=== PATIENT | male | born 2000 | race African-American/Black ===

== ENCOUNTER 2023-09-30 23:20 | Emergency (ER) | payer MEDICARE, MEDICAID, SELFPAY ==
[2023-09-30 23:46] LABS: Appearance Urine Clear (Clear); Bilirubin Urine Negative (Negative); Blood Urine Negative (Negative); Color Urine Yellow (Yellow); Glucose Urine Negative (Negative); Ketones Urine Negative (Negative); Leukocyte Esterase Urine Negative (Negative); Nitrite Urine Negative (Negative); Protein Urine Negative (Negative); Specific Gravity Urine >= 1.030 (1.000-1.030); Urobilinogen Urine 0.2 (0.2-1.0)
[2023-09-30 23:59] LABS: RBC Urine 0-2 (0-2); Squamous Epithelial Cell Urine Few (None-Few); WBC Urine 0-2 (0-5)
[2023-10-01 00:06] VITALS: BP 120/72; PULSE 70; RESP 16; TEMP 36.7; O2SAT 95; BMI 30.1
--- NOTE | 2023-10-01 00:18 | ED.GENADULT ---
HPI - General Adult General Chief complaint: Urogenital Problems, Male Stated complaint: pelvic pain, right side pain Time Seen by Provider: 10/01/23 00:17 History of Present Illness HPI narrative: 2 week history of R pelvis into R flank pain, intermittent in nature but pain increasing last 2 days to point of limiting ability to get up out of bed. Endorses no fevers just maybe intermittent cough along w/ burning and urgency w/ urination. Denies any nausea, able take in po fine . 23-year-old man presenting to the emergency department with concern of intermittent right flank. Dysuria and flank pain can occur independently. Has not noted any urethral discharge. No hematuria. Right flank pain or abdominal area pain is worse with movement rotation in particular. Has been somewhat constipated lately. When I ask, he endorses being homeless; walking a lot. Related Data Previous Rx's ?Medication ?Instructions ?Recorded magnesium citrate 300 ml PO DAILY PRN constipation 10/01/23 #296 mL polyethylene glycol 3350 17 17 g PO .daily-tid #238 grams 10/01/23 gram/dose oral powder (Miralax) Review of Systems Status of ROS: Reports: 6 or more systems reviewed and unremarkable except as noted in History and below Exam Narrative: Exam Narrative: Pleasant. NAD. Breathing easily. Extremities are well perfused. Without edema. The extremities without difficulty. Abdomen is notably flat. Present bowel sounds. No peritoneal signs. Sore to palpation in the right abdomen. Heart in regular rate and rhythm without murmur rub or gallop. Lungs are clear. Skin is warm and dry without area rash. Const: Vital Signs, click to edit/add: Vital Signs - 24 hr 10/01/23 00:06 Temperature 98.0 F Pulse Rate [Pulse Oximeter] 70 Respiratory Rate 16 Blood Pressure [Ri ght Upper Arm] 120/72 Pulse Oximetry 95 Oxygen Delivery Me thod Room Air Documenting provider has reviewed patient's vital signs: yes Course Vital Signs Vital signs: Initial Vital Signs Temperature 98.0 F 10/01/23 00:06 Temperature Source Temporal Artery Scan 10/01/23 00:06 Pulse Rate 70 10/01/23 00:06 Respiratory Rate 16 10/01/23 00:06 Blood Pressure 120/72 10/01/23 00:06 Blood Pressure Mean 88 10/01/23 00:06 Blood Pressure Position Sitting 10/01/23 00:06 Pulse Oximetry 95 10/01/23 00:06 Oxygen Delivery Method Room Air 10/01/23 00:06 Vital Signs Temperature 98.0 F 10/01/23 00:06 Pulse Rate 70 10/01/23 00:06 Respiratory Rate 16 10/01/23 00:06 Blood Pressure 120/72 10/01/23 00:06 Pulse Oximetry 95 10/01/23 00:06 Oxygen Delivery Method Room Air 10/01/23 00:06 Temperature 98.0 F 10/01/23 00:06 Pulse Rate 70 10/01/23 00:06 Respiratory Rate 16 10/01/23 00:06 Blood Pressure 120/72 10/01/23 00:06 Pulse Oximetry 95 10/01/23 00:06 Oxygen Delivery Method Room Air 10/01/23 00:06 Medications Administered Medications: Discontinued Medications Generic Name Dose Route Start Last Admin Trade Name Freq PRN Reason Stop Dose Admin Sodium Chloride 1,000 mls @ 1,000 mls/hr 10/01/23 00:38 10/01/23 02:27 0.9 % Sodium Chloride 1000 Ml IV 10/01/23 01:37 Infused .Q1H ONE Infusion Medical Decision Making MDM Narrative Medical decision making narrative: Abdominal pain is a little nonspecific. Would check for an for inflammatory markers generally. Could be appendicitis or gallbladder disease. Mesenteric adenopathy, intestinal colic related to constipation, ureteral stone and colic. Think he would benefit from some IV hydration at a minimum given recent turn of life and homelessness at the moment. Maybe unrelated matters with concurrent urethritis or UTI. Check gonorrhea and chlamydia as well. IV normal saline. Labs are normal. Other than urine is somewhat concentrated. Still with unclear etiology to this pain though I suspect constipation is more likely playing a role. He would appreciate more sure that diagnosis. I think in light of his current transients, this probably is a good idea as follow-up will be challenging. I did review CT imaging. That does appear to be a good deal stool throughout the abdomen. Radiology over-read as below Right lower quadrant abdominal pain for 2 weeks Technique: CT through the abdomen and pelvis following 103 mL Isovue 370 IV contrast Comparison: None Findings: Lower chest: No acute abnormality appreciated. Hepatobiliary: No significant parenchymal abnormality is appreciated. Focal hypoenhancement involving segment 4 likely due to focal steatosis or perfusion all variation. Spleen: Unremarkable. Pancreas: No acute abnormality appreciated. Adrenal glands: No acute abnormality appreciated. Kidneys: No significant parenchymal abnormality appreciated. No visualized calculi. No hydronephrosis. Bowel: No obstruction. No focal perienteric or pericolonic stranding is appreciated. The appendix is not confidently visualized. No dilated inflamed structure is seen to suggest appendicitis. Vascular: No acute abnormality appreciated. Lymph nodes: Shotty mesenteric nodes. Peritoneum: No free air. No free fluid. : No acute abnormality appreciated. Soft tissues: No acute abnormality appreciated. Bones: No acute fracture. No lytic or blastic lesion. Impression: Shotty mesenteric nodes of uncertain clinical significance. The appendix is not confidently visualized, but there is no dilated structure or focal inflammatory changes seen to suggest acute appendicitis. No other acute abnormality is appreciated. If symptoms persist or worsen, repeat examination would be recommended for further evaluation. Overall well during time in the emergency department. No further events. See patient discharge plan for further discuss Lab Data Lab results reviewed: Yes I reviewed the patient's lab results Labs: Lab Results 09/30/23 10/01/23 10/01/23 Range/Units 11:30 00:38 01:05 WBC 8.72 (4.50-11.00) K/uL RBC 4.96 (4.30-5.90) m/uL Hgb 15.2 (13.5-17.5) gm/dL Hct 44.9 (37.0-53.0) % MCV 91 (80-100) fL MCH 31 (26-34) pg MCHC 34 (32-36) gm/dL RDW Coeff of Adelfo 11.9 (11.5-15.5) % Plt Count 311 (140-440) K/uL Neut % (Auto) 64.9 (42.0-72.0) % Lymph % (Auto) 23.3 (20-44) % [place] % (Auto) 9.2 (0.0-11.0) % Eos % (Auto) 1.8 (0.0-7.0) % Baso % (Auto) 0.6 (0.0-3.0) % Neut # (Auto) 5.66 (1.7-7.0) K/uL Lymph # (Auto) 2.03 (0.90-2.90) K/uL [place] # (Auto) 0.80 (0.00-0.90) K/UL Eos # (Auto) 0.16 (0.00-0.50) K/uL Baso # (Auto) 0.05 (0.00-0.30) K/uL Abs Immat Gran (auto) 0.02 (0.00-0.30) K/uL Imm/Tot Granulo (auto) 0.2 % Sodium 138 (135-149) mmol/L Potassium 4.4 (3.6-5.1) mmol/L Chloride 105 (96-114) mmol/L Carbon Dioxide 28 (20-32) mmol/L Anion Gap 5 L (7-15) mEq/L BUN 16 (5-24) mg/dL Creatinine 1.0 (0.5-1.5) mg/dL Estimated Creat Clear 116.60 Estimated GFR 107 ml/min Glucose 93 (60-115) mg/dL Calcium 9.2 (8.4-10.6) mg/dL Total Bilirubin 0.6 (0.1-1.5) mg/dL Direct Bilirubin (0.0-0.5) mg/dL AST (12-35) U/L ALT (4-50) U/L Alkaline Phosphatase (40-150) U/L C-Reactive Protein (0.5-1.0) mg/dL Total Protein (6.0-8.3) g/dL Albumin (3.3-5.0) g/dL Urine Color Yellow (Yellow) Urine Appearance Clear (Clear) Urine pH 6.0 (5.0-8.5) Ur Specific [place] >= 1.030 (1.000-1.030) Urine Protein Negative (Negative) Urine Glucose (UA) Negative (Negative) Urine Ketones Negative (Negative) Urine Blood Negative (Negative) Urine Nitrite Negative (Negative) Urine Bilirubin Negative (Negative) Urine Urobilinogen 0.2 (0.2-1.0) Ur Leukocyte Esterase Negative (Negative) Urine RBC 0-2 (0-2) Urine WBC 0-2 (0-5) Ur Squamous Epith Cells Few (None-Few) Urine Bacteria None (None) C.trachomatis Ampl DNA NOT DETECTED (No Detected) N.gonorrhoeae Ampl DNA NOT DETECTED (No Detected) 10/01/23 10/01/23 10/01/23 Range/Units 01:05 01:05 01:05 WBC (4.50-11.00) K/uL RBC (4.30-5.90) m/uL Hgb (13.5-17.5) gm/dL Hct (37.0-53.0) % MCV (80-100) fL MCH (26-34) pg MCHC (32-36) gm/dL RDW Coeff of Adelfo (11.5-15.5) % Plt Count (140-440) K/uL Neut % (Auto) (42.0-72.0) % Lymph % (Auto) (20-44) % [place] % (Auto) (0.0-11.0) % Eos % (Auto) (0.0-7.0) % Baso % (Auto) (0.0-3.0) % Neut # (Auto) (1.7-7.0) K/uL Lymph # (Auto) (0.90-2.90) K/uL [place] # (Auto) (0.00-0.90) K/UL Eos # (Auto) (0.00-0.50) K/uL Baso # (Auto) (0.00-0.30) K/uL Abs Immat Gran (auto) (0.00-0.30) K/uL Imm/Tot Granulo (auto) % Sodium (135-149) mmol/L Potassium (3.6-5.1) mmol/L Chloride (96-114) mmol/L Carbon Dioxide (20-32) mmol/L Anion Gap (7-15) mEq/L BUN (5-24) mg/dL Creatinine (0.5-1.5) mg/dL Estimated Creat Clear Estimated GFR ml/min Glucose (60-115) mg/dL Calcium (8.4-10.6) mg/dL Total Bilirubin Cancelled (0.1-1.5) mg/dL Direct Bilirubin 0.4 Cancelled (0.0-0.5) mg/dL AST 26 Cancelled (12-35) U/L ALT 27 (4-50) U/L Alkaline Phosphatase (40-150) U/L C-Reactive Protein (0.5-1.0) mg/dL Total Protein (6.0-8.3) g/dL Albumin (3.3-5.0) g/dL Urine Color (Yellow) Urine Appearance (Clear) Urine pH (5.0-8.5) Ur Specific [place] (1.000-1.030) Urine Protein (Negative) Urine Glucose (UA) (Negative) Urine Ketones (Negative) Urine Blood (Negative) Urine Nitrite (Negative) Urine Bilirubin (Negative) Urine Urobilinogen (0.2-1.0) Ur Leukocyte Esterase (Negative) Urine RBC (0-2) Urine WBC (0-5) Ur Squamous Epith Cells (None-Few) Urine Bacteria (None) C.trachomatis Ampl DNA (No Detected) N.gonorrhoeae Ampl DNA (No Detected) 10/01/23 10/01/23 10/01/23 Range/Units 01:05 01:05 01:05 WBC (4.50-11.00) K/uL RBC (4.30-5.90) m/uL Hgb (13.5-17.5) gm/dL Hct (37.0-53.0) % MCV (80-100) fL MCH (26-34) pg MCHC (32-36) gm/dL RDW Coeff of Adelfo (11.5-15.5) % Plt Count (140-440) K/uL Neut % (Auto) (42.0-72.0) % Lymph % (Auto) (20-44) % [place] % (Auto) (0.0-11.0) % Eos % (Auto) (0.0-7.0) % Baso % (Auto) (0.0-3.0) % Neut # (Auto) (1.7-7.0) K/uL Lymph # (Auto) (0.90-2.90) K/uL [place] # (Auto) (0.00-0.90) K/UL Eos # (Auto) (0.00-0.50) K/uL Baso # (Auto) (0.00-0.30) K/uL Abs Immat Gran (auto) (0.00-0.30) K/uL Imm/Tot Granulo (auto) % Sodium (135-149) mmol/L Potassium (3.6-5.1) mmol/L Chloride (96-114) mmol/L Carbon Dioxide (20-32) mmol/L Anion Gap (7-15) mEq/L BUN (5-24) mg/dL Creatinine (0.5-1.5) mg/dL Estimated Creat Clear Estimated GFR ml/min Glucose (60-115) mg/dL Calcium (8.4-10.6) mg/dL Total Bilirubin (0.1-1.5) mg/dL Direct Bilirubin (0.0-0.5) mg/dL AST (12-35) U/L ALT Cancelled (4-50) U/L Alkaline Phosphatase 143 Cancelled (40-150) U/L C-Reactive Protein 1.0 (0.5-1.0) mg/dL Total Protein 7.7 Cancelled (6.0-8.3) g/dL Albumin 4.5 (3.3-5.0) g/dL Urine Color (Yellow) Urine Appearance (Clear) Urine pH (5.0-8.5) Ur Specific [place] (1.000-1.030) Urine Protein (Negative) Urine Glucose (UA) (Negative) Urine Ketones (Negative) Urine Blood (Negative) Urine Nitrite (Negative) Urine Bilirubin (Negative) Urine Urobilinogen (0.2-1.0) Ur Leukocyte Esterase (Negative) Urine RBC (0-2) Urine WBC (0-5) Ur Squamous Epith Cells (None-Few) Urine Bacteria (None) C.trachomatis Ampl DNA (No Detected) N.gonorrhoeae Ampl DNA (No Detected) 10/01/23 Range/Units 01:05 WBC (4.50-11.00) K/uL RBC (4.30-5.90) m/uL Hgb (13.5-17.5) gm/dL Hct (37.0-53.0) % MCV (80-100) fL MCH (26-34) pg MCHC (32-36) gm/dL RDW Coeff of Adelfo (11.5-15.5) % Plt Count (140-440) K/uL Neut % (Auto) (42.0-72.0) % Lymph % (Auto) (20-44) % [place] % (Auto) (0.0-11.0) % Eos % (Auto) (0.0-7.0) % Baso % (Auto) (0.0-3.0) % Neut # (Auto) (1.7-7.0) K/uL Lymph # (Auto) (0.90-2.90) K/uL [place] # (Auto) (0.00-0.90) K/UL Eos # (Auto) (0.00-0.50) K/uL Baso # (Auto) (0.00-0.30) K/uL Abs Immat Gran (auto) (0.00-0.30) K/uL Imm/Tot Granulo (auto) % Sodium (135-149) mmol/L Potassium (3.6-5.1) mmol/L Chloride (96-114) mmol/L Carbon Dioxide (20-32) mmol/L Anion Gap (7-15) mEq/L BUN (5-24) mg/dL Creatinine (0.5-1.5) mg/dL Estimated Creat Clear Estimated GFR ml/min Glucose (60-115) mg/dL Calcium (8.4-10.6) mg/dL Total Bilirubin (0.1-1.5) mg/dL Direct Bilirubin (0.0-0.5) mg/dL AST (12-35) U/L ALT (4-50) U/L Alkaline Phosphatase (40-150) U/L C-Reactive Protein (0.5-1.0) mg/dL Total Protein (6.0-8.3) g/dL Albumin Cancelled (3.3-5.0) g/dL Urine Color (Yellow) Urine Appearance (Clear) Urine pH (5.0-8.5) Ur Specific [place] (1.000-1.030) Urine Protein (Negative) Urine Glucose (UA) (Negative) Urine Ketones (Negative) Urine Blood (Negative) Urine Nitrite (Negative) Urine Bilirubin (Negative) Urine Urobilinogen (0.2-1.0) Ur Leukocyte Esterase (Negative) Urine RBC (0-2) Urine WBC (0-5) Ur Squamous Epith Cells (None-Few) Urine Bacteria (None) C.trachomatis Ampl DNA (No Detected) N.gonorrhoeae Ampl DNA (No Detected) Discharge Plan Discharge Clinical Impression: Constipation, Abdominal pain, Mesenteric lymphadenopathy Patient Disposition: Home, Self-Care Condition: Stable Additional Instructions: Need to focus on hydration. Ideally need to drink 2-3 L of water daily. For the next couple of weeks consider adding a dose of MiraLax equivalent into at least 8 oz of whatever liquid you are drinking 1-3 times daily adjusting to stool consistency. To soften hard stools more immediately can use an enema or on overnight suppository. Further bowel cleanout can be accomplished by drinking a bottle of magnesium citrate. Dulcolax is another medication you could take once or twice daily longer-term but does not necessarily encourage fluid intake. It is possible that the constipation new been experiencing is contributing to your abdominal pain. Otherwise we have found relatively little. Prescriptions: New polyethylene glycol 3350 [Miralax] 17 gram/dose powder 17 g PO .daily-tid Qty: 238 0RF magnesium citrate Solution 300 ml PO DAILY PRN (Reason: constipation) Qty: 296 1RF Follow Up/Referrals: Analisa Mulligan MD [Staff Physician] - Stand Alone Forms: [employer] Info Instructions
[2023-10-01] MEDS: 0.9 % SODIUM CHLORIDE 1000 ml 1,000 ML IV (01:12)
[2023-10-01 01:21] LABS: Basophils Absolute Auto 0.05 K/uL (0.00-0.30); Basophils Percent Auto 0.6 % (0.0-3.0); Eosinophils Absolute Auto 0.16 K/uL (0.00-0.50); Eosinophils Percent Auto 1.8 % (0.0-7.0); Hematocrit 44.9 % (37.0-53.0); Hemoglobin* 15.2 gm/dL (13.5-17.5); Immature Granulocytes Abs Auto 0.02 K/uL (0.00-0.30); Immature Granulocytes Pct Auto 0.2 %; Lymphocytes Absolute Auto 2.03 K/uL (0.90-2.90); Lymphocytes Percent Auto 23.3 % (20-44); Mean Corpuscular HGB Conc 34 gm/dL (32-36); Mean Corpuscular Hemoglobin 31 pg (26-34); Mean Corpuscular Volume 91 fL (80-100); Monocytes Percent Auto 9.2 % (0.0-11.0); Neutrophils Absolute Auto 5.66 K/uL (1.7-7.0); Neutrophils Percent Auto 64.9 % (42.0-72.0); Platelet Count* 311 K/uL (140-440); RDW Coefficient of Variation % 11.9 % (11.5-15.5); Red Blood Count 4.96 m/uL (4.30-5.90); White Blood Count* 8.72 K/uL (4.50-11.00)
[2023-10-01 01:33] LABS: Slide Review Reflex No
[2023-10-01 01:36] LABS: Albumin* 4.5 g/dL (3.3-5.0); Chloride* 105 mmol/L (96-114)
[2023-10-01 01:37] LABS: Potassium* 4.4 mmol/L (3.6-5.1); Sodium* 138 mmol/L (135-149)
[2023-10-01 01:39] LABS: Anion Gap 5 mEq/L (7-15); Aspartate Amino Transferase* 26 U/L (12-35); Bilirubin Direct* 0.4 mg/dL (0.0-0.5); Bilirubin Total* 0.6 mg/dL (0.1-1.5); Carbon Dioxide* 28 mmol/L (20-32); Estimated Glomerular Filt Rate 107 ml/min; Total Protein* 7.7 g/dL (6.0-8.3)
[2023-10-01 01:40] LABS: Alanine Aminotransferase* 27 U/L (4-50); Alkaline Phosphatase* 143 U/L (40-150); Blood Urea Nitrogen* 16 mg/dL (5-24); Calcium* 9.2 mg/dL (8.4-10.6); Glucose* 93 mg/dL (60-115)
[2023-10-01 02:43] LABS: Chlamydia DNA Amplified* NOT DETECTED (No Detected); GC DNA Amplified* NOT DETECTED (No Detected)
--- NOTE | 2023-10-01 02:51 | CRLHL7_ITS ---
For Patients: As a result of the Century Cures Act, medical imaging exams and procedure reports are released immediately into your electronic medical record. You may view this report before your referring provider. If you have questions, please contact your health care provider. Indication: Right lower quadrant abdominal pain for 2 weeks Technique: CT through the abdomen and pelvis following 103 mL Isovue 370 IV contrast Comparison: None Findings: Lower chest: No acute abnormality appreciated. Hepatobiliary: No significant parenchymal abnormality is appreciated. Focal hypoenhancement involving segment 4 likely due to focal steatosis or perfusion all variation. Spleen: Unremarkable. Pancreas: No acute abnormality appreciated. Adrenal glands: No acute abnormality appreciated. Kidneys: No significant parenchymal abnormality appreciated. No visualized calculi. No hydronephrosis. Bowel: No obstruction. No focal perienteric or pericolonic stranding is appreciated. The appendix is not confidently visualized. No dilated inflamed structure is seen to suggest appendicitis. Vascular: No acute abnormality appreciated. Lymph nodes: Shotty mesenteric nodes. Peritoneum: No free air. No free fluid. : No acute abnormality appreciated. Soft tissues: No acute abnormality appreciated. Bones: No acute fracture. No lytic or blastic lesion. Impression: Shotty mesenteric nodes of uncertain clinical significance. The appendix is not confidently visualized, but there is no dilated structure or focal inflammatory changes seen to suggest acute appendicitis. No other acute abnormality is appreciated. If symptoms persist or worsen, repeat examination would be recommended for further evaluation. Please note that all CT scans at this facility use dose modulation, iterative reconstruction, and/or weight-based dosing when appropriate to reduce radiation dose to as low as reasonably achievable. Dictated by Jez Demarco MD @ 10/01/2023 3:45:17 AM (Electronically Signed)
== END 2023-10-01 07:04 | disposition home or self-care (01) ==
PROVIDERS: Emergency Provider Family Medicine
DX: R10.31 Right lower quadrant pain (principal); K59.00 Constipation, unspecified; I88.0 Nonspecific mesenteric lymphadenitis
CPT/HCPCS: 36415; 74177; 80048; 80076; 81001; 85025; 86140; 87491; 87591; 99284; J7030; Q9967

== ENCOUNTER 2023-12-18 18:41 | Outpatient (CLI) | payer MEDICARE, MEDICAID, SELFPAY ==
--- OUTSIDE RECORDS SUMMARY | 2023-12-20 00:08 | XMS_ITS | Clinical Summary ---
Author Organization [employer] [facility] [employer] [facility] Address [place], [place] [address] Care Team Providers Care Hospital Cleaning Specialist Name Role Phone Pcp, No Primary Care [...] QUANT PCR (12/09/2022 9:34 AM CDT) Pathologist [facility] HCV Ab Non Reactive Non Reactive 12/11/2022 1:[address] [facility] ([facility]) Blood BLOOD SPECIMEN / Unknown Venipuncture / Unknown 12/09/2022 9:34 AM CDT 12/09/2022 9:36 AM CDT Narrative [facility] ([facility]) - 12/11/2022 1:12 PM CDT Performed at: ??01 - [address] ??[id number] Damage Appraiser: Jose D Magdaleno MD, Phone: ??[phone] Edwar Leary MD LABORATORY [facility] ([facility]) [address] [place] [address] * LC HIV-1/O/2, 4TH GENERATION (12/09/2022 9:34 AM CDT) Pathologist [facility] HIV Scr 4th Gen Non Reactive Non Reactive 12/15/2022 6:[address] [facility] ([facility]) Comment: HIV Negative HIV-1/HIV-2 antibodies and HIV-1 p24 antigen were NOT detected. There is no laboratory evidence of HIV infection. Blood BLOOD SPECIMEN / Unknown Venipuncture / Unknown 12/09/2022 9:34 AM CDT 12/09/2022 9:36 AM CDT [facility]ative [facility] - 12/15/2022 6:08 AM CDT Performed at: ??01 - [facility] [address] ??[id number] Damage Appraiser: Jose D Magdaleno MD, Phone: ??[phone] Edwar Leary MD LABORATORY [facility] ([facility]) [facility] [place] [address], from Last 3 Months or Most Recently Relevant to Health Maintenance Care Teams Hospital Cleaning Specialist Relationship Specialty Start Date End Date Pcp, No . PCP - General 04/30/20
--- NOTE | 2023-12-21 11:08 | PC.SOCIAL ---
Social work: Received call from Viki Hobbs, [facility] Vulnerable Adult worker, stating she has an open case on this patient and requesting information be sent from the chart from ED visit on 12/18/23. Secure emailed requested information to Viki Hobbs.
== END 2023-12-18 18:42 | disposition home or self-care (01) ==
LOC: AMB 12-20 00:06
PROVIDERS: Visit Provider Emergency Medicine Emergency Medical Services
DX: R06.09 Other forms of dyspnea (principal)
CPT/HCPCS: A0425; A0427

== ENCOUNTER 2023-12-18 19:19 | Emergency (ER) | payer MEDICARE, MEDICAID, SELFPAY ==
[2023-12-18 19:26] VITALS: BP 150/72; PULSE 87; RESP 20; TEMP 36.7; O2SAT 99; BMI 28.4
--- NOTE | 2023-12-18 19:43 | ED.GENADULT ---
HPI - General Adult General Date Seen: 12/18/23 Chief complaint: Psychiatric Problem/Disorder Stated complaint: altered mental status, Shortness of breath, aggita Time Seen by Provider: 12/18/23 19:31 History of Present Illness HPI narrative: 23-year-old male brought to the ER today by EMS on a transport hold. History is obtained in part from police officers who initially encountered him, and part from EMS providers, and to a limited extent from the patient. History from police and EMS is that he has a 23-year-old male. He has previous dealings with the police and apparently has a history of mental health disorders (unknown what his diagnoses are). Please recall that they had to remove him from his parents property recently (he was trespassed off the property) for agitation.. He apparently has a known history of mental health disorders but has been refusing treatment. He apparently has [facility] case workers. Please know that he is homeless and living in a tent in his car. chief security officer notes that he had multiple driving fractions today including traveling at a very high rate of speed, in excess of 100 miles an hour. He passed at least 3 cars on the shoulder of the road. Ultimately he stopped. When police encountered him he seemed to be agitated, tachypneic, and was complaining of feeling short of breath. Therefore, harbor police lieutenant called the ambulance. He was issued a citation for his driving violations, but was not under arrest. When EMS arrived he did tell them that he smoked weed today. Apparently no other drugs. He seemed agitated. He received Ativan 1 mg IV and 700 mils of saline (beginning of a bolus) per EMS. After the Ativan his breathing seemed to calm. Patient tells me that he is ?all right with he is is on ?. He has a lot of episcopalian references during our conversation. He has a place where he is staying, apparently near a storage container. He would like to go back there to clean up his food because he does not want to leave a mass behind. He says he was going to target today. Unclear why. He talks about ?32 of water and a soda. He seems disorganized. He then says that he knew for 2 reasons that everything was going wrong. He heard a loud noise. He apparently saw a girl with black hair as well. When asked him why he was driving so fast on the road, he says that he had a pre cognition that something was going to happen and he was also trying to see what the reaction might be. He seems disorganized. He is currently homeless. He tells me he is living in his car and in a tent. However he has a place he can stay that he has arranged with people. He does not want leave a message at the place where he is staying. He would like to get back there possible. He tells me that he saw ?some kid? on the street today and asked the kid for some weed. The kid ?just gave it to (him). He wonders if the weed might be tainted. When asked how often he smokes weed he just says today was the only time. When asked about other drugs he gets off track. He has no other complaints. Headache. No recent fall or injury. No fever. No abdominal pain. No chest pain. He says he was feeling short of breath earlier but now feels better. Related Data Home Medications ?Medication ?Instructions ?Recorded ?Confirmed No Known Home Medications 12/18/23 12/18/23 Allergies Allergy/AdvReac Type Severity Reaction Status Date / Time No Known Drug Allergies Allergy Verified 12/18/23 19:30 [facility] Social History service: No Exam Narrative: Exam Narrative: Constitutional: Appears well-developed and well-nourished. Alert. Conversant. Non toxic. HENT: Head: Atraumatic. Nose: Nose normal. Mouth/Throat: Oral mucosa is clear but dry no trismus. Pharynx normal. Tonsils symmetric. No tonsillar enlargement, erythema, or exudate. Eyes: Conjunctivae normal. EOM normal. Pupils equal, round, and reactive to light. No scleral icterus. Neck: Normal range of motion. Neck supple. No tracheal deviation present. Cardiovascular: Tachycardic-104, sinus on the monitor, regular rhythm. No gallop. No friction rub. No murmur heard. Symmetric radial artery pulses Pulmonary/Chest: Effort normal. No stridor. No respiratory distress. No wheezes. No rales. No rhonchi . No tenderness. Abdominal: Soft. Bowel sounds normal. No distension. No mass. No tenderness. No rebound. No guarding. Musculoskeletal: RUE: Normal range of motion. No tenderness. No deformity LUE: Normal range of motion. No tenderness. No deformity RLE: Normal range of motion. No edema. No tenderness. No deformity LLE: Normal range of motion. No edema. No tenderness. No deformity Lymph: No cervical adenopathy. Neurological: Alert and oriented to person, place, and time. Normal strength. CN II-VII intact. No sensory deficit. GCS eye subscore is 4. GCS verbal subscore is 5. GCS motor subscore is 6. Normal coordination Skin: Skin is warm and dry. No rash noted. No pallor. Normal capillary refill. Psychiatric: He is polite and cooperative now. Reported was very anxious per EMS but now better after Ativan. He is talking about being right with cheeses, wanting to get Satan behind him. He does endorse that he smoked ?weed? today. Noncommittal he denies other drugs, but seems unclear about that. Const: Vital Signs, click to edit/add: Vital Signs - 24 hr 12/18/23 19:26 Temperature 98.0 F Pulse Rate [Right Pulse Oximeter] 87 Respiratory Rate 20 Blood Pressure [Ri ght Upper Arm] 150/72 H Pulse Oximetry 99 Oxygen Delivery Me thod Room Air Course Course ED Course: Recheck-nurse's report the patient is now calm and lucid. Reevaluation(s) Reevaluation #1: I re-evaluated the patient at about 9:00 p.m.. He was calm, much more conversant. His sentences were cogent and thought processes seem logical and oriented. This is a marked improvement compared to his presentation when he arrived. He is requesting discharge home. He has been using his cellphone to try to call his friends. He is not sure, yet, how he is going to get back to his car. He thinks he might just walk. I encouraged him to try to call his friends for a ride since the couple of a miles to his car. Initial labs are back and are reassuring. At this time he also requests that we do an HIV screen. When I ask him what makes him concerned about HIV he says he thinks he might have been exposed to it last year when he was in [place]. Apparently, he has acts other doctors do HIV screen, but they would not screen him. I agreed to order an HIV antibody and P 24 antigen test for him. We discussed that this takes several hours to come back and likely the therefore would not result while he is here. He would have to be willing to receive his test results as a phone call tomorrow. He is willing to do so. He confirms that he will answer is cellphone tomorrow. He is encouraged to follow-up with his primary care provider at the [facility]. He would need to see them if he does need to initiate HIV anti-retroviral therapy. Additionally would need to recheck with them for other primary care. Consult against drug use or marijuana use. Suspect that his acute symptoms today may have been related to intoxicated with drugs. Drug screen is positive only for THC. I wonder if his marijuana may have been contaminated by something else such as K2 or other label designer synthetic drugs.. Vital Signs Vital signs: Initial Vital Signs Temperature 98.0 F 12/18/23 19:26 Temperature Source Temporal Artery Scan 12/18/23 19:26 Pulse Rate 87 12/18/23 19:26 Respiratory Rate 20 12/18/23 19:26 Blood Pressure 150/72 H 12/18/23 19:26 Blood Pressure Mean 98 12/18/23 19:26 Blood Pressure Position Sitting 12/18/23 19:26 Pulse Oximetry 99 12/18/23 19:26 Oxygen Delivery Method Room Air 12/18/23 19:26 Vital Signs Temperature 98.0 F 12/18/23 19:26 Pulse Rate 87 12/18/23 19:26 Respiratory Rate 20 12/18/23 19:26 Blood Pressure 150/72 H 12/18/23 19:26 Pulse Oximetry 99 12/18/23 19:26 Oxygen Delivery Method Room Air 12/18/23 19:26 Temperature 98.0 F 12/18/23 19:26 Pulse Rate 87 12/18/23 19:26 Respiratory Rate 20 12/18/23 19:26 Blood Pressure 150/72 H 12/18/23 19:26 Pulse Oximetry 99 12/18/23 19:26 Oxygen Delivery Method Room Air 12/18/23 19:26 Medications Administered Medications: Discontinued Medications Generic Name Dose Route Start Last Admin Trade Name Freq PRN Reason Stop Dose Admin Sodium Chloride 1,000 mls @ 1,000 mls/hr 12/18/23 20:00 12/18/23 20:34 0.9 % Sodium Chloride 1000 Ml IV 12/18/23 20:59 Infused .Q1H ANDERSON Infusion Olanzapine 10 mg 12/18/23 19:48 12/18/23 19:50 Olanzapine 5 Mg Tab.Rapdis PO 12/18/23 19:49 10 mg ONCE ONE Administration Medical Decision Making MDM Narrative Medical decision making narrative: A 3-year-old male brought to the ER today by EMS on a transport hold. He had been driving fast and erratically and was pulled over by police. Than seeming to be behaving erratically in complaining shortness of breath, brought in by EMS. When he presented he had been treated with Ativan was no longer short of breath was still behaving erratically and is having some disorganized thought processes. Differential here would include drug or alcohol intoxication, psychosis, sandie, primary psychiatric disorder, thyroid disorder, among others. Laboratory workup is reassuring. No evidence for hyponatremia, thyrotoxicosis, hyper or hypoglycemia, alcohol intoxication. He does endorse that he smoked ?weed? today. Drug screen is positive for marijuana. He says he rarely smokes weed. We wonder if this may have been laced with some adult her aunt. He was treated with fluids and Zyprexa here in the ER. He had remarkable improvement within about an hour to. Upon recheck he is lucid, linear, goal oriented. He is conversant. He at this point he is not holdable. Discussed with the patient that we could consider an inpatient mental evaluation because it sounds like he does have a history of unrecognized untreated mental health problems. Although he is not overtly psychotic now, this may be a unique opportunity for him to have an evaluation which here to for, he has been all not willing to undergo in the outpatient setting. Ultimately he is not willing to stay for further evaluation and is requesting discharge. Since he is not holdable, I will have to discharge him home. He also requested HIV screen. Apparently had an exposure or concern for HIV that happened last year when he was in [place]. We discussed HIV screening, window., and the fact that HIV test will not result while he is here in the ER today. He understands that he will have to receive his test results by phone. Discussed that we will not call him if his test is negative but we will call him if he tests positive. In that eventuality he will have to follow up with his primary care provider (physician at the [facility] in [place]) for HIV evaluation and to start on anti-retroviral medications. He is agreeable. Addendum-ultimately HIV some green came back saying negative. Lab Data Labs: Lab Results 12/18/23 12/18/23 Range/Units 19:54 20:02 WBC 8.21 (4.50-11.00) K/uL RBC 4.55 (4.30-5.90) m/uL Hgb 13.8 (13.5-17.5) gm/dL Hct 40.8 (37.0-53.0) % MCV 90 (80-100) fL MCH 30 (26-34) pg MCHC 34 (32-36) gm/dL RDW Coeff of Adelfo 12.0 (11.5-15.5) % Plt Count 315 (140-440) K/uL Neut % (Auto) 61.0 (42.0-72.0) % Lymph % (Auto) 23.8 (20-44) % [place] % (Auto) 10.8 (0.0-11.0) % Eos % (Auto) 3.3 (0.0-7.0) % Baso % (Auto) 1.0 (0.0-3.0) % Neut # (Auto) 5.01 (1.7-7.0) K/uL Lymph # (Auto) 1.95 (0.90-2.90) K/uL [place] # (Auto) 0.90 (0.00-0.90) K/UL Eos # (Auto) 0.27 (0.00-0.50) K/uL Baso # (Auto) 0.08 (0.00-0.30) K/uL Abs Immat Gran (auto) 0.01 (0.00-0.30) K/uL Imm/Tot Granulo (auto) 0.1 % Sodium 137 (135-149) mmol/L Potassium 3.5 L (3.6-5.1) mmol/L Chloride 105 (96-114) mmol/L Carbon Dioxide 27 (20-32) mmol/L Anion Gap 5 L (7-15) mEq/L BUN 16 (5-24) mg/dL Creatinine 1.1 (0.5-1.5) mg/dL Estimated Creat Clear 99.32 Estimated GFR 96 ml/min Glucose 83 (60-115) mg/dL Lactate 0.6 (0.5-1.9) mmol/L Calcium 8.5 (8.4-10.6) mg/dL Total Bilirubin 1.1 (0.1-1.5) mg/dL AST 36 H (12-35) U/L ALT 32 (4-50) U/L Alkaline Phosphatase 125 (40-150) U/L Total Protein 7.5 (6.0-8.3) g/dL Albumin 4.3 (3.3-5.0) g/dL TSH 1.300 (0.270-4.200) uIU/mL Salicylates < 1.0 L (1.0-10) mg/dL Urine Opiates Screen Negative (Negative) Ur Oxycodone Screen Negative (Negative) Urine Methadone Screen Negative (Negative) Acetaminophen < 10.0 L (10.0-30.0) ug/mL Ur Barbiturates Screen Negative (Negative) U Tricyclic Antidepress Negative (Negative) Ur Phencyclidine Scrn Negative (Negative) Ur Amphetamines Screen Negative (Negative) U Methamphetamines Scrn Negative (Negative) U Benzodiazepines Scrn Negative (Negative) Urine Cocaine Screen Negative (Negative) U Marijuana (THC) Screen POSITIVE A (Negative) Ur Drug Screen Comment See Note Ethyl Alcohol < 0.01 L (0.01-0.03) % HIV 1&2 Ab/P24 Ag 4thGn Negative (Negative) ECG Data Attestation: I personally reviewed and interpreted this ECG as follows: Interpretation: Normal sinus rhythm Rate: 75 WY: 124 QRS axis: Normal ST segment/T wave: Artifact in lead V2. No ST segment elevation or depression. QTc: 399 Discharge Plan Discharge Clinical Impression: Anxiety, Marijuana abuse Patient Disposition: Home, Self-Care Condition: Stable Instructions: Anxiety (ED) Additional Instructions: As we discussed, avoid marijuana use or other drugs. Please come back to the ER right away if you have worsening thoughts of anxiety, anxiousness, if your feeling worried or paranoid, if your hearing voices, or if you have any concerns. The results of your HIV test will not come back while you are in the ER tonight. The ER will call you tomorrow if your test is positive. It is very important for you to and see her phone to receive a phone call tomorrow. The ER will not call you if your HIV test is normal and negative. Even if your HIV test is negative, please make an appointment to recheck with your doctor at the [facility] clinic within 1 week. Activity Level: No Restrictions Discharge Diet: Regular Prescriptions: No Action No Known Home Medications Follow Up/Referrals: Provider,Not a Local [Primary Care Provider] - Stand Alone Forms: [employer]Parrot Info Instructions
--- OUTSIDE RECORDS SUMMARY | 2023-12-18 19:48 | XMS_ITS | Clinical Summary ---
Author Organization [employer] [facility] [employer] [facility] Address [place], [place] [address] Care Team Providers Care Engineer Rf Deployment Name Role Phone Pcp, No Primary Care Provider Unavailabl e Allergies Active Allergy Reactions Criticality Noted Date Comments Lactose Diarrhea High 07/05/2017 Medications No known medications Active Problems Problem Noted Date Diagnosed Date Marijuana abuse 11/06/2018 Sleep disorder 07/05/2017 Overweight 07/04/2013 Moderate persistent asthma 12/15/2010 Reactive attachment disorder 08/26/2008 Conduct disorder 08/26/2008 Attention Deficit Disorder with Hyperactivity Resolved Problems Problem Noted Date Diagnosed Date Resolved Date Controlled substance agreement signed 11/08/2016 11/06/2018 Overview: Signed 02/03/2016 Dr Jennifer Lewis Psychiatry Mild intermittent asthma 07/22/2008 ADHD (attention deficit hype ractivity disorder) 04/22/2008 09/26/2008 Overview: Updated by system to replace inactive record Immunizations Name Administration Dates Next Due AMB Influenza, IIV3 (Age >=3 years)(Flu Clinic Only) 04/09/2008 COVID-19 vaccine (Moderna 100mcg/0.5mL) PF, MDV 08/14/2020 DTaP 09/04/2004, 0,03/03/1999,12/30,1998 HIB PRP-T (ActHIB,Hiberix) 11/20/1999 HIB-HepB (Comvax) 03/03/1999,1998,10/17/18 99 HPV 9 (Gardasil 9) 12/17/2014,11/05/2014 Hepatitis A (Peds) 08/30/2016,11/05/2014 Human Papilloma Virus Vaccine 10/02/2015 Inactivated Polio Vaccine 09/04/2004,05/1999,1998,10/17 Influenza A (H1N1), Inactiva fabiola (Age >=3 Years) 05/07/2009 Influenza, IIV3 (Age 6-35 mos) 04/13/2004,2000,03/04/2000 Influenza, IIV3 (Age >=3 years) 03/06/2012,04/07,03/18/2005 Influenza, IIV4 04/30/2020,07/06/2018 MMR 09/04/2004,08/18/1999 Meningococcal Vaccine (Menveo) 10/02/2015,2014 Pneumococcal conj 7-Valent (Prevnar 7) 0,08/18/1999 Tdap 06/13/2019,10/28/2009 Varicella Vaccine 10/28/2009,08/18/1999 Family History * Patient is adopted Medical History Relation Name Comments Good Health Father Good Health Mother Cancer No Family History Relation Name Status Comments Father Alive Mother Alive Social History Tobacco Use Types Packs/Day Years Used Date Smoking Tobacco: Former Cigarettes Q uit: 05/03/2020 Passive Smoke Exposure: Never Smokeless Tobacco: Never Tobacco Cessation:Counseling Given: Not Answered Alcohol Use Standard Drinks/Week Comments Not Currently 0 (1 standard drink = 0.6 oz pur e alcohol) 2-4 times a month PHQ-2 Answer Date Recorded PHQ-2 TOTAL SCORE 1 04/30/2020 Social Connections Answer Date Recorded Frequency of Communication with Friends and Fami ly Not on file 12/12/2023 Financial Resource Strain Answer Date R ecorded Difficulty of Paying Living Expenses 3 12/09/2022 Difficulty of Paying Living Expenses Not on file 12/09/2022 Food Insecurity Answer Date Recorded Worried About Running Out of Food in the Last Ye ar 1 12/09/2022 Transportation Needs Answer Date Record ed Lack of Transportation (Medical) 1 12/09/2022 Housing Stability Answer Date Recorded Unable to Pay for Housing in the Last Year 1 12/09/2022 Sex and Gender Information Value Date Recorded Sex Assigned at Not on file Gender Identity Not on file Sexual Orientation Not on file Obstetrics History Last Filed Vital Signs Vital Sign Reading Time Taken Comments Blood Pressure 133/79 12/09/2022 9:07 AM CDT Pulse 88 12/09/2022 9:07 AM CDT Temperature 36.7 ??C (98 ??F) 12/09/2022 9:07 AM CDT Respiratory Rate 18 12/09/2022 9:07 AM CDT Oxygen Saturation 98% 12/09/2022 9:07 AM CDT Inhaled Oxygen Concentration - - Weight 105.8 kg (233 lb 3.2 oz) 12/09/2022 9:07 AM CDT Height 180.3 cm (5' 11) 12/09/2022 9:07 AM CDT Body Mass Index 32.52 12/09/2022 9:07 AM CDT Plan of Treatment Health Maintenance Due Date Last Done Comments Pneumococcal series for age 6-64 (1 of 2 - PCV) 2004 11/20/1999, 08/18/1999 Depression screening for age 12+ 04/30/2021 04/30/2020, 07/06/2018, 07/22/2017, Additional history exists COVID-19 vaccine series ( season) 2022 04/13/2021, 11/14/2020, 08/14/2020 BMI (ht and wt on same day) for age 18+ 12/10/2023 12/09/2022, 07/30/2020, 06/27/2020, Additional history exists Influenza for age 9-49 12/18/2023 , 07/06/2018, 03/06/2012, Additional history exists Tetanus booster 06/13/2029 06/13/2019, 10/28/2009 HPV series for age 9-26 Completed 10/02/19 16, 12/17/2014, 11/05/2014 Tdap Completed 06/13/2019, 10/28/2009 HIV for age 15-65 Completed 12/09/2022, , 06/27/2020, Additional history exists Hepatitis C screening for ag e 18-79 Completed 12/09/2022 Procedures Procedure Name Priority Date/Time Associated Diagnosis Comments LC HIV-1/O/2, 4TH GENERATION Routine 12/09/2022 9:34 AM CDT Screen for STD (sexually transmitted disease) LC HCV ANTIBODY RFX TO QUANT PCR Routine 12/09/2022 9:34 AM CDT Need for hepatitis C screening test from Last 3 Months or Most Recently Relevant to Health Maintenance Results * LC HCV ANTIBODY RFX TO QUANT PCR (12/09/2022 9:34 AM CDT) Pathologist [facility] HCV Ab Non Reactive Non Reactive 12/11/2022 1:12 PM CDT [facility] ([facility]) Blood BLOOD SPECIMEN / Unknown Venipuncture / Unknown 12/09/2022 9:34 AM CDT 12/09/2022 9:[address] [facility] ([facility]) - 12/11/2022 1:12 PM CDT Performed at: ??01 - [address] ??[id number] General Ledger Bookkeeper: Jose D Magdaleno MD, Phone: ??[phone] Edwar Leary MD LABORATORY [facility] ([facility]) [address] [place] [address] * LC HIV-1/O/2, 4TH GENERATION (12/09/2022 9:34 AM CDT) Pathologist [facility] HIV Scr 4th Gen Non Reactive Non Reactive 12/15/2022 6:[address] [facility] ([facility]) Comment: HIV Negative HIV-1/HIV-2 antibodies and HIV-1 p24 antigen were NOT detected. There is no laboratory evidence of HIV infection. Blood BLOOD SPECIMEN / Unknown Venipuncture / Unknown 12/09/2022 9:34 AM CDT 12/09/2022 9:36 AM CDT [facility]ative [facility] - 12/15/2022 6:08 AM CDT Performed at: ??01 - [facility] [address] ??[id number] General Ledger Bookkeeper: Jose D Magdaleno MD, Phone: ??[phone] Edwar Leary MD LABORATORY [facility] ([facility]) [facility] [place] [address], from Last 3 Months or Most Recently Relevant to Health Maintenance Care Teams Engineer Rf Deployment Relationship Specialty Start Date End Date Pcp, No . PCP - General 04/30/20
[2023-12-18] MEDS: 0.9 % SODIUM CHLORIDE 1000 ml 1,000 ML IV (19:50)
[2023-12-18] MEDS: OLANZapine 5 MG TAB.RAPDIS 10 MG PO (19:50)
[2023-12-18 20:06] LABS: Lactate* 0.6 mmol/L (0.5-1.9)
[2023-12-18 20:08] LABS: Basophils Absolute Auto 0.08 K/uL (0.00-0.30); Eosinophils Absolute Auto 0.27 K/uL (0.00-0.50); Eosinophils Percent Auto 3.3 % (0.0-7.0); Hematocrit 40.8 % (37.0-53.0); Hemoglobin* 13.8 gm/dL (13.5-17.5); Immature Granulocytes Abs Auto 0.01 K/uL (0.00-0.30); Immature Granulocytes Pct Auto 0.1 %; Lymphocytes Absolute Auto 1.95 K/uL (0.90-2.90); Lymphocytes Percent Auto 23.8 % (20-44); Mean Corpuscular HGB Conc 34 gm/dL (32-36); Mean Corpuscular Hemoglobin 30 pg (26-34); Mean Corpuscular Volume 90 fL (80-100); Monocytes Percent Auto 10.8 % (0.0-11.0); Neutrophils Absolute Auto 5.01 K/uL (1.7-7.0); Platelet Count* 315 K/uL (140-440); Red Blood Count 4.55 m/uL (4.30-5.90); White Blood Count* 8.21 K/uL (4.50-11.00)
[2023-12-18 20:09] LABS: Slide Review Reflex No
[2023-12-18 20:11] LABS: Amphetamine Screen Urine Negative (Negative); Barbiturate Screen Urine Negative (Negative); Benzodiazepines Screen Urine Negative (Negative); Cannabinoid Screen Urine POSITIVE (Negative); Cocaine Screen Urine Negative (Negative); Methadone Screen Urine Negative (Negative); Methamphetamines Screen Urine Negative (Negative); Opiate Screen Urine Negative (Negative); Oxycodone Screen Urine Negative (Negative); Phencyclidine Screen Urine Negative (Negative); Tricyclic Antidepressant Urine Negative (Negative)
[2023-12-18 20:22] LABS: Albumin* 4.3 g/dL (3.3-5.0); Chloride* 105 mmol/L (96-114); Potassium* 3.5 mmol/L (3.6-5.1); Sodium* 137 mmol/L (135-149)
[2023-12-18 20:24] LABS: Creatinine* 1.1 mg/dL (0.5-1.5); Est. Creatinine Clearance* 99.32; Estimated Glomerular Filt Rate 96 ml/min
[2023-12-18 20:25] LABS: Alanine Aminotransferase* 32 U/L (4-50); Alkaline Phosphatase* 125 U/L (40-150); Anion Gap 5 mEq/L (7-15); Aspartate Amino Transferase* 36 U/L (12-35); Bilirubin Total* 1.1 mg/dL (0.1-1.5); Blood Urea Nitrogen* 16 mg/dL (5-24); Calcium* 8.5 mg/dL (8.4-10.6); Carbon Dioxide* 27 mmol/L (20-32); Glucose* 83 mg/dL (60-115); Total Protein* 7.5 g/dL (6.0-8.3)
[2023-12-18 20:26] LABS: Acetaminophen* < 10.0 ug/mL (10.0-30.0); Salicylate* < 1.0 mg/dL (1.0-10)
[2023-12-18 20:27] LABS: Ethanol* < 0.01 % (0.01-0.03)
--- NOTE | 2023-12-18 21:02 | ED.NURSE ---
Pt states that he has a friend picking him up from the ER to give him a ride back to his vehicle. Pt is talking in coherent sentences and his speech is clear. Pt given back his clothes and he states that he has received everything back that is on the list of itemized belongings. Pt has no further questions or comments for this nurse and pt signed discharge paperwork. Pt is appropriately dressed for the current weather and has shoes on.
[2023-12-18 22:47] LABS: HIV 1/2/P24 Combo Screen* Negative (Negative)
== END 2023-12-18 21:06 | disposition home or self-care (01) ==
PROVIDERS: Emergency Provider Emergency Medicine
DX: F41.9 Anxiety disorder, unspecified (principal); F12.10 Cannabis abuse, uncomplicated; Z51.81 Encounter for therapeutic drug level monitoring; Z11.4 Encounter for screening for human immunodeficiency virus [HIV]
CPT/HCPCS: 36415; 80053; 80143; 80179; 80306; 82077; 83605; 84443; 85025; 86703; 93005; 99284; A9270; J7030

== ENCOUNTER 2023-12-21 23:38 | Outpatient (CLI) | payer MEDICARE, MEDICAID, SELFPAY ==
--- OUTSIDE RECORDS SUMMARY | 2023-12-24 09:39 | XMS_ITS | Clinical Summary ---
Author Organization [employer] [facility] [employer] [facility] Address [place], [place] [address] Care Team Providers Care Chrome Tanner Name Role Phone Pcp, No Primary Care [...] Date Controlled substance agreement signed 11/08/2016 11/06/2018 Overview (11/08/2016): Signed 02/03/2016 Dr Jennifer Lewis Psychiatry Mild intermittent asthma 07/22/2008 ADHD (attention deficit hype ractivity disorder) 04/22/2008 09/26/2008 Overview (07/01/2009): Updated by system to replace inactive record [...] 04/30/2021 04/30/2020, 07/06/2018, 07/22/2017, Additional history exists BMI (ht and wt on same day) for age 18+ 12/10/2023 12/09/2022, 07/30/2020, 06/27/2020, Additional history exists COVID-19 vaccine series ( season) 2023 04/13/2021, 11/14/2020, 08/14/2020 Influenza for age 9-49 12/18/2023 , 07/06/2018, [...] TO QUANT PCR (12/09/2022 9:34 AM CDT) HCV Ab Non Reactive Non Reactive 12/11/2022 1:12 PM CDT [facility] ([facility]) Blood BLOOD SPECIMEN / Unknown Venipuncture / Unknown 12/09/2022 9:34 AM CDT 12/09/2022 9:36 AM CDT Narrative [facility] ([facility]) - 12/11/2022 1:12 PM CDT Performed at: ??01 - [address] ??[id number] Switch Maker: Jose D Magdaleno MD, Phone: ??[phone] Edwar Leary MD LABORATORY [facility] ([facility]ET) [address] [place] [address] * LC HIV-1/O/2, 4TH GENERATION (12/09/2022 9:34 AM CDT) Pathologist [facility] HIV Scr 4th Gen Non Reactive Non Reactive 12/15/2022 6:08 AM CDT [facility] ([facility]) Comment: HIV Negative HIV-1/HIV-2 antibodies and HIV-1 p24 antigen were NOT detected. There is no laboratory evidence of HIV infection. Blood BLOOD SPECIMEN / Unknown Venipuncture / Unknown 12/09/2022 9:34 AM CDT 12/09/2022 9:36 AM CDT [facility]ative [facility] - 12/15/2022 6:08 AM CDT Performed at: ??01 - [address] ??[id number] Switch Maker: Jose D Magdaleno MD, Phone: ??[phone] Edwar Leary MD LABORATORY [facility] ([facility]) [facility] [place] [id number] from Last 3 Months or Most Recently Relevant to Health Maintenance Care Teams Chrome Tanner Relationship Specialty Start Date End Date Pcp, No . PCP - General 04/30/20
== END 2023-12-21 23:39 | disposition home or self-care (01) ==
LOC: AMB 12-24 09:38
PROVIDERS: Visit Provider Emergency Medicine Emergency Medical Services
DX: F12.10 Cannabis abuse, uncomplicated (principal)
CPT/HCPCS: A0425; A0429

== ENCOUNTER 2023-12-22 00:03 | Emergency (ER) | payer MEDICARE, MEDICAID, SELFPAY ==
[2023-12-22 00:05] VITALS: BP 127/84; PULSE 78; RESP 16; TEMP 36.5; O2SAT 98
--- NOTE | 2023-12-22 00:16 | ED_ITS ---
HPI - General Adult General Chief complaint: Overdose Stated complaint: overdose Time Seen by Provider: 12/22/23 00:05 Source: patient and EMS Mode of arrival: ambulatory Limitations: no limitations History of Present Illness HPI narrative: 23-year-old male presents to the emergency department for the 2nd time this week with intoxication. Patient reports that he took too many gummies and is feeling too high. He denies a feeling of paranoia, chest pain, dyspnea, fevers, neurological change or any other specific changes. He was appropriate with the EMS crew and they did not note any unstable vitals, delusions, agitation or other alarming symptoms. He did tell them the same story. He will not disclose how many gummies he took as he does not remember. He denies alcohol or any other illicit drugs on top of the THC products. He was not particularly forthcoming with details about himself so much of it had to be reviewed from his ED note a few days ago. Patient is currently homeless but has case workers from the [facility]. He does have a vehicle and currently has some nursing home though it is not a permanent residence. He has had run-ins with the law regarding erratic driving within the last week. It sounds as though he was ticketed but no charges were filed. He denies any assault, trauma or injury. He reports no fever or medical illness. He denies that anyone is trying to harm him. denies any fear for his safety. ED notes from a few days ago reviewed. Does not seem to have any chronic illness or prescription medications other than a psychiatric history. EMS did not administer any treatments and has no additional feedback from our initial discussion. Past medical history notable for mental health disorders though I do not know specifics nor have access to those records today. No known drug allergies, no long-term medications per his report. None are seen through electronic channels that connect to pharmacies or other health systems. Regular marijuana user but denies other illicit drugs. ROS is notable for feeling of anxiety and intoxication today but otherwise denies times 12 systems. Related Data Home Medications ?Medication ?Instructions ?Recorded ?Confirmed No Known Home Medications 12/18/23 12/18/23 Allergies Allergy/AdvReac Type Severity Reaction Status Date / Time No Known Drug Allergies Allergy Verified 12/18/23 19:30 PFSH PFS Social History service: No Exam Const: Vital Signs, click to edit/add: Vital Signs - 24 hr 12/21/ 00:05 Temperature 97.7 F Pulse Rate [Pulse Oximeter] 78 Respiratory Rate 16 Blood Pressure [Ri ght Upper Arm] 127/84 Pulse Oximetry 98 Oxygen Delivery Me thod Room Air Documenting provider has reviewed patient's vital signs: yes Common no rmals: no apparent distress and alert Other: Calm with fair insight. No psychosis, delusions or agitation. Cooperative on exam. This is a contrast to his previous visit this week where it was noted that he was more agitated. He continually says things like I appreciate you, I just do not really think about those sorts of things when asked about what he had for dinner or other recent events to check his memory and recall. HENMT: Common normals: normocephalic, hearing grossly normal bilaterally and external ears normal Head and scalp: normal to inspection and normocephalic Face and sinus: normal facial exam External ear: external ears normal Mouth: oral and palatal mucosa normal Throat: posterior oropharynx normal Eye: Common normals: conjunctivae normal General eye: normal appearance of both eyes Conjunctiva: conjunctiva(e) normal Neck & C-Spine: Common normals: full ROM, no lymphadenopathy and no meningeal signs Resp: Common normals: normal respiratory effort, no use of accessory muscles and clear to auscultation bilaterally Effort & inspection: able to speak in complete sentences Auscultation: clear to auscultation bilaterally Cardio: Common normals: regular rate, regular rhythm, S1 normal heart sound, S2 normal heart sound and no murmurs Rate: regular rate Rhythm: regular rhythm Heart sounds: S1 normal and S2 normal GI: Common normals: Normal to inspection, nondistended, normoactive bowel sounds present, soft to palpation, non-tender, no hepatosplenomegaly and no masses Palpation: soft and no hepatosplenomegaly Extremity: Common normals: normal to inspection, normal capillary refill, no joint enlargement and no pedal edema Neuro: Sensorium/orientation: alert Meningeal signs: no meningeal signs Speech: speech normal Motor exam: strength 5/5 throughout and no movement abnormalities noted Psych: Appearance: grossly normal Activity/motor behavior: appropriate eye contact Thought content: normal thought content Attention/concentration: attention grossly intact Skin: Common normals: no rashes or lesions noted General skin exam: no rashes or lesions noted Course Course ED Course: 23-year-old male with prior psychiatric history presenting to the ED after calling EMS himself for being too high. There are no signs of neurological impairment, intoxication with any other substance besides the THC that he admits to. Vitals are stable, following commands with no signs of risk of bodily harm. Patient counseled on appropriate use of mood altering substances for relaxation verses his current pattern. 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 At this time, he is not holdable and does not have any signs of risks to his current health, he will be discharged home under his own care. Labs from 3 days ago reviewed. No indications to hold for further treatment or follow-up of any chronic condition. Vital Signs Vital signs: Initial Vital Signs Temperature 97.7 F 12/22/23 00:05 Temperature Source Temporal Artery Scan 12/22/23 00:05 Pulse Rate 78 12/22/23 00:05 Respiratory Rate 16 12/22/23 00:05 Blood Pressure 127/84 12/22/23 00:05 Blood Pressure Mean 98 12/22/23 00:05 Blood Pressure Position Supine 12/22/23 00:05 Pulse Oximetry 98 12/22/23 00:05 Oxygen Delivery Method Room Air 12/22/23 00:05 Vital Signs Temperature 97.7 F 12/22/23 00:05 Pulse Rate 78 12/22/23 00:05 Respiratory Rate 16 12/22/23 00:05 Blood Pressure 127/84 12/22/23 00:05 Pulse Oximetry 98 12/22/23 00:05 Oxygen Delivery Method Room Air 12/22/23 00:05 Temperature 97.7 F 12/22/23 00:05 Pulse Rate 78 12/22/23 00:05 Respiratory Rate 16 12/22/23 00:05 Blood Pressure 127/84 12/22/23 00:05 Pulse Oximetry 98 12/22/23 00:05 Oxygen Delivery Method Room Air 12/22/23 00:05 Discharge Plan Discharge Clinical Impression: Intoxication by drug Patient Disposition: Home, Self-Care Condition: Stable Instructions: Cannabis Use Disorder (ED) Additional Instructions: as we discussed, there does not seem to be any sign of a medical emergency today. This is good news. Your heart and lungs are doing well and there are no signs of neurological impairment. I reviewed your labs and note from just a few days ago in the emergency department. It does not look as though these need to be repeated. If you do not like the feeling of being this high, you should not use so much THC. Would recommend that you significantly cut down your use. Repeated use of the emergency department will draw more attention from your catalytic case operator and could potentially lead to loss of independence or placement into a senior care. If this is not your goal, I would recommend cutting down on the drug use. Activity Level: No Restrictions Discharge Diet: Regular Prescriptions: No Action No Known Home Medications Follow Up/Referrals: Provider,Not a Local [Primary Care Provider] - Stand Alone Forms: [employer] Info Instructions
--- OUTSIDE RECORDS SUMMARY | 2023-12-22 00:26 | XMS_ITS | Clinical Summary ---
Author Organization [employer] [facility] [employer] Address [place], [place] [address] Care Team Providers Care Sales Floor Team Member Name Role Phone Pcp, No Primary Care [...] (Age >=3 years) 03/06/2012,04/07,03/18/2005 Influenza, IIV4 04/30/2020,07/06/2018 MENINGOCOCCAL VACCINE 2 VIAL [id number] (MENVEO) 10/02/2015,11/05/2014 MMR 09/04/2004,08/18/1999 Pneumococcal conj 7-Valent (Prevnar 7) 0,08/18/1999 Tdap [...] QUANT PCR (12/09/2022 9:34 AM CDT) Pathologist [facility] HCV Ab Non Reactive Non Reactive 12/11/2022 1:12 PM CDT [facility] ([facility]) Blood BLOOD SPECIMEN / Unknown Venipuncture / Unknown 12/09/2022 9:34 AM CDT 12/09/2022 9:36 AM CDT Narrative [facility] ([facility]) - 12/11/2022 1:12 PM CDT Performed at: ??01 - [address] ??[id number] Clinical Cytogeneticist Scientist: Jose D Magdaleno MD, Phone: ??[phone] Edwar Leary MD LABORATORY [facility] ([facility]) [address] [place] [address] * LC HIV-1/O/2, 4TH GENERATION (12/09/2022 9:34 AM CDT) Pathologist [facility] HIV Scr 4th Gen Non Reactive Non Reactive 12/15/2022 6:08 AM CDT [facility] ([facility]) Comment: HIV Negative HIV-1/HIV-2 antibodies and HIV-1 p24 antigen were NOT detected. There is no laboratory evidence of HIV infection. Blood BLOOD SPECIMEN / Unknown Venipuncture / Unknown 12/09/2022 9:34 AM CDT 12/09/2022 9:36 AM CDT [facility] - 12/15/2022 6:08 AM CDT Performed at: ??01 - [address] ??[id number] Clinical Cytogeneticist Scientist: Jose D Magdaleno MD, Phone: ??[phone] Edwar Leary MD [facility]) [facility] [address] from Last 3 Months or Most Recently Relevant to Health Maintenance Care Teams Sales Floor Team Member Relationship Specialty Start Date End Date Pcp, No . PCP - General 04/30/20
[2023-12-22 00:29] VITALS: BP 122/78; PULSE 70; RESP 16; TEMP 36.5; O2SAT 98
[2023-12-22 00:31] VITALS: BP 122/78; PULSE 70; RESP 16; TEMP 36.5
--- NOTE | 2023-12-22 10:01 | PC.SOCIAL ---
Social work: Received call from Viki Hobbs [facility] vulnerable adult worker, stating she has an open case on this patient and requesting notes be sent from his ED visit last night. Per Viki, pt is manic and needs an in-pt mental health stay. Viki is requesting an MD letter in support of commitment from a hospital physician if they support this need for commitment. Pt is currently in the residential.
== END 2023-12-22 00:31 | disposition home or self-care (01) ==
LOC: ED 00:23
PROVIDERS: Emergency Provider Family Medicine
DX: F12.129 Cannabis abuse with intoxication, unspecified (principal)
CPT/HCPCS: 99283

== ENCOUNTER 2023-12-22 01:39 | Emergency (ER) | payer MEDICARE, MEDICAID, SELFPAY ==
[2023-12-22 01:44] VITALS: BP 127/90; PULSE 100; RESP 18; TEMP 36.4; O2SAT 96
--- NOTE | 2023-12-22 01:52 | ED_ITS ---
HPI - Medical Clearance General Chief complaint: Medical Clearance Stated complaint: needs to be cleared for incarceration Time Seen by Provider: 12/22/23 01:43 Source: patient and police History of Present Illness HPI Narrative: patient returns to the ED about 90 minutes after discharge with law enforcement. He elected to ask the taxi cab to take him to a residence where he is not welcome. When he attempted to gain entry, police were called. Police state that when they arrived, patient was calm and cooperative, out front of the residence held epis hands and said go ahead and cuff me, I know I am not supposed to be here. He was cooperative, admitted to use of about 100 mg of THC through marijuana gummies tonight. Denies any injury since discharge, no intoxication with other substances. He has not been agitated or aggressive towards lawn for cement. They are planning to take him to correction but need medical clearance. Patient asks how I am doing and I let him know that the night is going just fine, he smiles and tells me that is good, that is good. He denies any acute concerns, denies any paranoia or psychosis. Does not really answer questions when I talk about future plans, upcoming goals or intent for the next few days but cooperates well with exam, verbalizes no new concerns. Past medical history notable for mental health disorders and homelessness, unchanged from a couple of hours ago. Previous notes from earlier in the week reviewed as well. Related Information Home Medications ?Medication ?Instructions ?Recorded ?Confirmed No Known Home Medications 12/18/23 12/18/23 Allergies Allergy/AdvReac Type Severity Reaction Status Date / Time No Known Drug Allergies Allergy Verified 12/18/23 19:30 [facility] Medical History No significant past medical history Surgical History No significant past surgical history Social History Smoking Status: Never smoker Second hand tobacco smoke exposure: No How often do you have a drink containing alcohol: never AUDIT-C Alcohol total score: 0 Non-prescribed substance use: marijuana (any form) service: No Exam Const: Vital Signs, click to edit/add: Vital Signs - 24 hr 12/22/23 01:44 Temperature 97.6 F Pulse Rate [Pulse Oximeter] 100 Respiratory Rate 18 Blood Pressure [Ri ght Upper Arm] 127/90 H Pulse Oximetry 96 Oxygen Delivery Me thod Room Air Documenting provider has reviewed patient's vital signs: yes Common normals: alert Other: giggly and cooperative. No agitation. He is handcuffed, accompanied by PD. He cooperates well with the exam. Makes good conversation but is still unable to answer bigger picture type questions stating that he ?do not know nothing about that?. He is polite and smiling with his answers. HENMT: Common normals: normocephalic Head and scalp: normocephalic Face and sinus: normal facial exam Mouth: oral and palatal mucosa normal Throat: posterior oropharynx normal Eye: Common normals: EOMs intact bilaterally and conjunctivae normal General eye: normal appearance of both eyes Conjunctiva: conjunctiva(e) normal Neck & C-Spine: General: normal visual inspection Chest: Common normals: inspection of chest normal Resp: Common normals: normal respiratory effort, no use of accessory muscles and clear to auscultation bilaterally Effort & inspection: able to speak in c omplete sentences Auscultation: clear to auscultation bilaterally Cardio: Common normals: regular rate, regular rhythm, S1 normal heart sound, S2 normal heart sound and no murmurs Rate: regular rate Rhythm: regular rhythm Heart sounds: S1 normal and S2 normal GI: Common normals: Normal to inspection, nondistended, normoactive bowel sounds present and soft to palpation Palpation: soft Extremity: Common normals: normal to inspection, no joint enlargement and no pedal edema Neuro: Sensorium/orientation: alert Speech: speech normal Gait (neuro): normal gait Motor exam: no movement abnormalities noted Psych: Insight: fair Judgement: fair Skin: Common normals: no rashes or lesions noted Narrative: No signs of injury or trauma. General skin exam: no rashes or lesions noted Course Course ED Course: 23-year-old male with cannabis intoxication picked up for trespassing by local PD. Patient without any signs of medical illness, trauma or injury. Patient has had recent blood work to rule out any major chronic metabolic condition. Exam earlier in the night was more comprehensive, limited exam tonight shows no further injury. He does not seem to be significant harm to himself or others at this time. He will be discharged to the police department for further consequences regarding his trespassing. He is medically cleared at this time. Vital Signs Vital signs: Initial Vital Signs Temperature 97.6 F 12/22/23 01:44 Temperature Source Temporal Artery Scan 12/22/23 01:44 Pulse Rate 100 12/22/23 01:44 Respiratory Rate 18 12/22/23 01:44 Blood Pressure 127/90 H 12/22/23 01:44 Blood Pressure Mean 102 12/22/23 01:44 Blood Pressure Position Standing 12/22/23 01:44 Pulse Oximetry 96 12/22/23 01:44 Oxygen Delivery Method Room Air 12/22/23 01:44 Vital Signs Temperature 97.6 F 12/22/23 01:44 Pulse Rate 100 12/22/23 01:44 Respiratory Rate 18 12/22/23 01:44 Blood Pressure 127/90 H 12/22/23 01:44 Pulse Oximetry 96 12/22/23 01:44 Oxygen Delivery Method Room Air 12/22/23 01:44 Temperature 97.6 F 12/22/23 01:44 Pulse Rate 100 12/22/23 01:44 Respiratory Rate 18 12/22/23 01:44 Blood Pressure 127/90 H 12/22/23 01:44 Pulse Oximetry 96 12/22/23 01:44 Oxygen Delivery Method Room Air 12/22/23 01:44 Discharge Plan Discharge Clinical Impression: Intoxication by drug Patient Disposition: Xfer Other Condition: Stable Instructions: Cannabis Use Disorder (ED) Additional Instructions: You do not seem to have any new injury, unstable vitals or any other dangerous complications of your marijuana intoxication tonight. I do strongly recommend that you cut down on use of the substances to prevent further discrepancies with law enforcement. You are medically cleared from the emergency department at this time and are safe to be discharged into the care of law enforcement. No additional medical workup is recommended. Activity Level: No Restrictions Discharge Diet: Regular Prescriptions: No Action No Known Home Medications Stand Alone Forms: [facility] Info Instructions
[2023-12-22 01:54] VITALS: BP 125/74; PULSE 90; RESP 18; TEMP 36.4; O2SAT 96
--- OUTSIDE RECORDS SUMMARY | 2023-12-22 01:54 | XMS_ITS | Clinical Summary ---
Author Organization [employer] [facility] [employer] [facility] Address [place], [place] [address] Care Team Providers Care Skiver Operator Name Role Phone Pcp, No Primary Care [...] QUANT PCR (12/09/2022 9:34 AM CDT) Pathologist [facility] HCV Ab Non Reactive Non Reactive 12/11/2022 1:12 PM CDT [facility] ([facility]) Blood BLOOD SPECIMEN / Unknown Venipuncture / Unknown 12/09/2022 9:34 AM CDT 12/09/2022 9:36 AM CDT Narrative [facility] ([facility]) - 12/11/2022 1:12 PM CDT Performed at: ??01 - [address] ??[id number] Grinding Wheel Inspector: Jose D Magdaleno MD, Phone: ??[phone] Edwar Leary MD LABORATORY [facility] ([facility]) [address] [place] [address] * LC HIV-1/O/2, 4TH GENERATION (12/09/2022 9:34 AM CDT) Pathologist [facility] HIV Scr 4th Gen Non Reactive Non Reactive 12/15/2022 6:08 AM CDT [facility] ([facility]) Comment: HIV Negative HIV-1/HIV-2 antibodies and HIV-1 p24 antigen were NOT detected. There is no laboratory evidence of HIV infection. Blood BLOOD SPECIMEN / Unknown Venipuncture / Unknown 12/09/2022 9:34 AM CDT 12/09/2022 9:36 AM CDT N[facility]ative [facility] - 12/15/2022 6:08 AM CDT Performed at: ??01 - [address] ??[id number] Grinding Wheel Inspector: Jose D Magdaleno MD, Phone: ??[phone] Edwar Leary MD [facility]) [facility] [address] from Last 3 Months or Most Recently Relevant to Health Maintenance Care Teams Skiver Operator Relationship Specialty Start Date End Date Pcp, No . PCP - General 04/30/20
[2023-12-22 01:56] VITALS: BP 125/74; PULSE 90; RESP 18; TEMP 36.4
== END 2023-12-22 01:57 | disposition other institution (70) ==
LOC: ED 01:53
PROVIDERS: Emergency Provider Family Medicine
DX: F12.129 Cannabis abuse with intoxication, unspecified (principal)
CPT/HCPCS: 99282; 99283